=== PATIENT | female | born 1975 | race Caucasian/White ===

== ENCOUNTER 2022-10-29 01:47 | Emergency (ER) | payer BC ==
[2022-10-29 01:57] VITALS: BP 129/94; PULSE 104
[2022-10-29] MEDS ORDERED: Acetaminophen/oxyCODONE 325-5 MG Tab PO ONE (02:08)
== END 2022-10-29 03:45 | disposition home or self-care (01) ==
LOC: JP.ED 01:47
DX: S42.212A Unspecified displaced fracture of surgical neck of left humerus, initial encounter for closed fracture (principal); S42.252A Displaced fracture of greater tuberosity of left humerus, initial encounter for closed fracture; F17.210 Nicotine dependence, cigarettes, uncomplicated; Z88.1 Allergy status to other antibiotic agents; W22.8XXA Striking against or struck by other objects, initial encounter
CPT/HCPCS: 73030; 73060; 99283; A9270